=== PATIENT | male | born 1975 | race African-American/Black ===

== ENCOUNTER 2025-06-30 09:04 | Emergency (ER) | payer OTHER | END 2025-06-30 10:30 | disposition home or self-care (01) | LOC: MW.ED 09:04 | DX: S00.93XA Contusion of unspecified part of head, initial encounter (principal); W22.8XXA Striking against or struck by other objects, initial encounter | CPT/HCPCS: 70450; 70450-26; 70486; 70486-26; 71046; 71046-26; 72125; 72125-26; 99282; 99284 ==